=== PATIENT | male | born 1985 | race Caucasian/White ===

== ENCOUNTER 2022-01-19 13:54 | Outpatient (CLI) | payer MEDICARE, MEDICAID ==
[2022-01-19 14:15] LABS: #Lymphocytes 0.7 thou/uL (1.20-3.40); #Monocytes 0.5 thou/uL (0.11-0.59); #Neutrophils 3.6 thou/uL (1.40-6.50); %Basophils 0.6 % (0.0-1.0); %Lymphocytes 14.2 % (21.0-51.0); %Monocytes 9.8 % (0.0-10.0); %Neutrophils 75.3 % (42.0-75.0); Hemoglobin 14.4 g/dL (14.0-18.0); Mean Corpuscular HGB CONC 33.2 g/dL (32.0-36.0); Mean Corpuscular Hemoglobin 29.2 pg (27.0-31.0); Mean Platelet Volume 8.3 fL (7.4-10.4); Platelet Count 166 thou/uL (130-400); RBC Distribution Width 10.7 % (11.5-14.5); Red Blood Cell (RBC) Count 4.94 mill/uL (4.70-6.10); White Blood Cell (WBC) Count 4.8 thou/uL (4.8-10.8)
[2022-01-19 14:34] LABS: ALT (SGPT) 21 U/L (8-55); AST (SGOT) 14 U/L (5-34); Albumin 4.6 g/dL (3.5-5.0); Alkaline Phosphatase 92 U/L (40-110); Anion Gap 16 mmol/L (10-20); BUN (Urea Nitrogen) 8 mg/dL (8.9-20.6); Bilirubin, Total 0.4 mg/dL (0.2-1.2); Calc. Creatinine Clearance 0 mL/min (70-130); Calcium 9.7 mg/dL (7.8-10.44); Carbon Dioxide 20 mmol/L (22-29); Chloride 100 mmol/L (98-107); Estimated GFR 120; Globulin 2.5 g/dL (2.4-3.5); Glucose 110 mg/dL (70-105); Protein, Total 7.1 g/dL (6.0-8.3); Sodium 132 mmol/L (136-145)
[2022-01-19 22:27] LABS: Hemoglobin A1c 4.7 % (4.0-6.0)
== END 2022-01-19 13:55 | disposition home or self-care (01) ==
LOC: MADLABBHPM 13:54 → MADLAB 13:55
PROVIDERS: ATTEND Family Medicine
DX: R63.1 Polydipsia (principal); Z79.899 Other long term (current) drug therapy
CPT/HCPCS: 80053; 83036; 84443; 85025

== ENCOUNTER 2024-02-21 14:42 | Emergency (ER) | payer MEDICARE, MEDICAID ==
[~2024-02-21 14:42] MED LIST: Iopamidol 370 76% 100 ML VIAL ONE
[2024-02-21] MEDS ORDERED: Ondansetron ODT 4 MG TAB ONE (15:09)
[2024-02-21] MEDS ORDERED: Lorazepam 2 MG/ML VIAL ONE ×3 (15:13→16:33)
[2024-02-21 16:09] LABS: #Basophils 0.1 thou/uL (0.0-0.2); #Lymphocytes 1.2 thou/uL (1.20-3.40); #Monocytes 1.8 thou/uL (0.11-0.59); #Neutrophils 15.1 thou/uL (1.40-6.50); %Basophils 0.4 % (0.0-1.0); %Lymphocytes 6.7 % (21.0-51.0); %Monocytes 10.1 % (0.0-10.0); %Neutrophils 82.8 % (42.0-75.0); Hematocrit 47.1 % (42.0-52.0); Hemoglobin 15.6 g/dL (14.0-18.0); Mean Corpuscular HGB CONC 33.2 g/dL (32.0-36.0); Mean Corpuscular Hemoglobin 29.5 pg (27.0-31.0); Mean Platelet Volume 7.5 fL (7.4-10.4); Platelet Count 295 10x3/uL (130-400); RBC Distribution Width 12.2 % (11.5-14.5); Red Blood Cell (RBC) Count 5.29 mill/uL (4.70-6.10); White Blood Cell (WBC) Count 18.2 10x3/uL (4.8-10.8)
[2024-02-21 16:22] LABS: ALT (SGPT) 28 U/L (8-55); AST (SGOT) 38 U/L (5-34); Albumin 5.4 g/dL (3.5-5.0); Alkaline Phosphatase 95 U/L (40-110); Anion Gap 27 mmol/L (10-20); BUN (Urea Nitrogen) 58 mg/dL (8.9-20.6); Bilirubin, Total 1.2 mg/dL (0.2-1.2); Calc. Creatinine Clearance 0 mL/min (70-130); Calcium 10.7 mg/dL (7.8-10.44); Carbon Dioxide 16 mmol/L (22-29); Chloride 110 mmol/L (98-107); Estimated GFR 35; Glucose 141 mg/dL (70-105); Lipase 32 U/L (8-78); Potassium 3.5 mmol/L (3.5-5.1); Protein, Total 8.4 g/dL (6.0-8.3); Sodium 149 mmol/L (136-145)
[2024-02-21] MEDS ORDERED: Triple Antibiotic Oint 1 GM Packet ONE (16:54)
[2024-02-21] MEDS ORDERED: Promethazine HCl 25 MG/ML VIAL ONE (17:39)
[2024-02-21] MEDS ORDERED: Sodium Chloride 0.9% 100 ML ONE (19:38)
[2024-02-21] MEDS ORDERED: levETIRAcetam 500 MG (5 mL) VIAL ONE (19:38)
[2024-02-21] MEDS ORDERED: Sodium Chloride 0.9% 1,000 ML ONE (21:28)
[2024-02-22] MEDS ORDERED: Promethazine HCl 25 MG/ML VIAL ONE ×3 (00:20→12:03)
[2024-02-22] MEDS ORDERED: Lactated Ringer's 2,000 ML ONE (06:43)
[2024-02-22] MEDS ORDERED: Lactated Ringer's 1,000 ML ONE (12:36)
[2024-02-22] MEDS ORDERED: Lorazepam 2 MG/ML VIAL ONE (13:39)
[2024-02-22] MEDS ORDERED: Ketorolac Tromethamine 30 MG (1 mL) VIAL ONE (15:19)
== END 2024-02-22 15:43 | disposition short-term general hospital (02) ==
LOC: MADERS 14:42
DX: E86.0 Dehydration (principal); F84.0 Autistic disorder; N17.9 Acute kidney failure, unspecified; R11.2 Nausea with vomiting, unspecified
CPT/HCPCS: 71045; 74177; 80053; 83605; 83690; 84484; 85025; 96361; 96365; 96372; 96375; 96376; J1885; J1953; J2060; J2550; J7030; J7120; Q0162; Q9967